=== PATIENT | male | born 1995 | race Caucasian/White ===

== ENCOUNTER 2018-08-19 17:23 | Emergency (ER) | payer OTHER ==
--- NOTE | 2018-08-19 17:46 | ED ---
Throat Pain/Nasal Congestion - HPI Summary HPI Summary: 22 year old male presents with sore throat for the past couple days. He states that his sore throat seemed to get better but then it got worst. He denies any fevers. Denies any sinus congestion. No cough. No bowel pain nausea vomiting. Denies any history of mono or strep. - History of Current Complaint Time Seen by Provider: 08/19/18 17:32 - Allergies/Home Medications Allergies/Adverse Reactions: Allergies Allergy/AdvReac Type Severity Reaction Status Date / Time No Known Allergies Allergy Verified 08/19/18 17:52 Home Medications: Home Medications Ibuprofen TAB* [Motrin TAB* 400 MG] 400 mg PO Q6H PRN 08/19/18 [History Confirmed 08/19/18] PMH/Surg Hx/FS Hx/Imm Hx Endocrine/Hematology History: Denies: Hx Anticoagulant Therapy Respiratory History: Denies: Hx Asthma Infectious Disease History: Denies: Traveled Outside the [place] in Last 30 Days - Family History Known Family History: Negative: Respiratory Disease Review of Systems Negative: Fever Positive: Sore Throat Negative: Chest Pain Negative: Shortness Of Breath All Other Systems Reviewed And Are Negative: Yes Physical Exam Triage Information Reviewed: Yes Vital Signs Reviewed: Yes Appearance: Positive: Well-Appearing Skin: Positive: Warm, Dry Head/Face: Positive: Normal Head/Face Inspection Eyes: Positive: Normal, EOMI, CALE, Conjunctiva Clear ENT: Positive: Pharyngeal erythema, TMs normal, Uvula midline, Other - soft palate symmetric. Negative: Tonsillar swelling, Tonsillar exudate, Trismus, Muffled voice Neck: Positive: Supple, Tenderness @ - cervical, Enlarged Nodes @ - cervical Respiratory/Lung Sounds: Positive: Clear to Auscultation, Breath Sounds Present Cardiovascular: Positive: Normal, RRR Abdomen Description: Positive: Nontender, Soft Bowel Sounds: Positive: Present Musculoskeletal: Positive: Normal Neurological: Positive: Normal Psychiatric: Positive: Normal EENT Course/Dx - Course Course Of Treatment: 22 year old male presents with sore throat for the past couple days. He states that his sore throat seemed to get better but then it got worst. He denies any fevers. Denies any sinus congestion. No cough. No bowel pain nausea vomiting. Denies any history of mono or strep. On exam pharynx erythematous. Uvula midline. Soft palate symmetric. Strep negative. We'll treat supportively. Patient understands and agrees with plan. - Differential Diagnoses Differential Diagnoses: Pharyngitis, Sinusitis, Other - strept - Diagnoses Provider Diagnoses: Pharyngitis Discharge - Sign-Out/Discharge Documenting (check all that apply): Patient Departure All imaging exams completed and their final reports reviewed: No Studies - Discharge Plan Condition: Good Disposition: HOME Patient Education Materials: Ph[facility]itis (ED) [facility] - Additional Instructions: Take Tylenol or ibuprofen for pain every 6 hours Can gargle salt water Can use cough drops or products such as cloraseptic spray Return to ED if develop fever does not respond to Tylenol or ibuprofen, inability to swallow, or difficulty breathing or any new or worsening symptoms - Billing Disposition and Condition Condition: GOOD Disposition: Home
[2018-08-19 17:51] VITALS: BP 118/68
== END 2018-08-19 18:00 | disposition home or self-care (01) ==
LOC: UCEAST 17:23
DX: J02.9 Acute pharyngitis, unspecified (principal)
CPT/HCPCS: 87651; 99201; G0463